=== PATIENT | female | born 1955 | race Caucasian/White ===

== ENCOUNTER → 2024-05-16 08:16 | Outpatient (REF) | payer MEDICARE, OTHER, SELFPAY | LOC: RAD 08:16 | PROVIDERS: ATTENDING PHYSICIAN Internal Medicine Gastroenterology; FAMILY PHYSICIAN Family Medicine | DX: R76.11 Nonspecific reaction to tuberculin skin test without active tuberculosis (principal) | CPT/HCPCS: 71046 ==

== ENCOUNTER → 2024-06-08 06:56 | Outpatient (REF) | payer MEDICARE, OTHER, SELFPAY | LOC: RAD 06:56 | PROVIDERS: ATTENDING PHYSICIAN Internal Medicine Gastroenterology; FAMILY PHYSICIAN Family Medicine | DX: K82.4 Cholesterolosis of gallbladder (principal) | CPT/HCPCS: 76700 ==

== ENCOUNTER 2024-06-20 06:05 | Day surgery (SDC) | payer MEDICARE, OTHER, SELFPAY ==
--- NOTE | 2024-06-19 09:51 | PTCARENOTE ---
Abn Lab,+ TB in blood, Ivette in office aware.
[2024-06-20] VITALS (13 sets, daily range): BP systolic 132–158; BP diastolic 63–83; BMI 21.7
[2024-06-20] MEDS: TYLENOL 1000 MG PO (10:31)
[2024-06-20] MEDS: NORMOSOL-R/PLASMALYTE-A 1000 IV (10:31)
[2024-06-20] MEDS: DILAUDID 0.25 MG IV (15:06)
[2024-06-20] MEDS: ZOFRAN 4 MG IV (15:06)
== END 2024-06-20 17:40 | disposition home or self-care (01) ==
LOC: SDS 06:05
PROVIDERS: ATTENDING PHYSICIAN Otolaryngology
DX: J34.2 Deviated nasal septum (principal); J34.3 Hypertrophy of nasal turbinates; J34.89 Other specified disorders of nose and nasal sinuses; J32.0 Chronic maxillary sinusitis
CPT/HCPCS: 31254; 30520; 30140; 31256; 31240; 88304; 88311

== ENCOUNTER → 2024-08-22 13:38 | Outpatient (REF) | payer MEDICARE, OTHER, SELFPAY | LOC: HWRAD 13:38 | PROVIDERS: ATTENDING PHYSICIAN Family Medicine | DX: M25.552 Pain in left hip (principal) | CPT/HCPCS: 73502 ==

== ENCOUNTER → 2024-09-04 10:05 | Outpatient (REF) | payer MEDICARE, OTHER, SELFPAY | LOC: HWRAD 10:05 | PROVIDERS: ATTENDING PHYSICIAN Family Medicine; REFERRING PHYSICIAN Obstetrics & Gynecology | DX: Z12.31 Encounter for screening mammogram for malignant neoplasm of breast (principal); M81.0 Age-related osteoporosis without current pathological fracture | CPT/HCPCS: 77063; 77067; 77080 ==

== ENCOUNTER → 2025-10-10 11:01 | Outpatient (REF) | payer MEDICARE, OTHER, SELFPAY | LOC: HWWDC 11:01 | PROVIDERS: ATTENDING PHYSICIAN Obstetrics & Gynecology; FAMILY PHYSICIAN Family Medicine | DX: Z12.31 Encounter for screening mammogram for malignant neoplasm of breast (principal) | CPT/HCPCS: 77063; 77067 ==